=== PATIENT | male | born 1990 | race Two or more races ===

== ENCOUNTER 2024-01-15 19:16 | Emergency (ER) | payer MEDICAID, OTHER ==
[~2024-01-15] VITALS: Ht 170.2 cm; Wt 100.0 kg
[2024-01-15 21:02] VITALS: BP 123/77; PULSE 83; RESP 18; TEMP 98.2; O2SAT 97
[2024-01-15] MEDS: KETOROLAC TROMETH 30 MG/ML 1ML VIAL IM ONE (21:02)
[2024-01-15] MEDS ORDERED: IBUP-1455 PO (21:17)
== END 2024-01-15 21:29 | disposition home or self-care (01) ==
LOC: ER 19:16
DX: S52.512A Displaced fracture of left radial styloid process, initial encounter for closed fracture (principal); S80.11XA Contusion of right lower leg, initial encounter; M54.59 Other low back pain; V89.2XXA Person injured in unspecified motor-vehicle accident, traffic, initial encounter; Y93.I9 Activity, other involving external motion; Y92.89 Other specified places as the place of occurrence of the external cause; Y99.8 Other external cause status
CPT/HCPCS: 29125; 72100; 73110; 96372; 99284; J1885